=== PATIENT | male | born 1950 | race Caucasian/White ===

== ENCOUNTER 2016-12-20 14:15 | Inpatient (IN) | payer OTHER ==
[~2016-12-20] VITALS: Ht 182.9 cm; Wt 93.0 kg
[2016-12-20 15:03] LABS: BASOPHIL % 0.4 % (0-2); PLATELET COUNT 271 x10^3mcL (130-400); RED CELL DISTRIBUTION WIDTH 13.6 % (11.5-14.5)
[2016-12-20 15:41] LABS: CALCIUM 9.1 mg/dL (8.5-10.1); CARBON DIOXIDE 26.9 mmol/L (21-32); CHLORIDE SERUM 106 mmol/L (98-107); CREATININE SERUM 0.9 mg/dL (0.7-1.3); GFR1 > 60 mL/min; GLUCOSE SERUM 87 mg/dL (74-106); POTASSIUM SERUM 4.1 mmol/L (3.5-5.1); SODIUM SERUM 141 mmol/L (136-145)
[2016-12-20 15:46] LABS: ALBUMIN 3.6 g/dL (3.4-5.0); ALKALINE PHOSPHATASE 85 U/L (46-116); ALT/SGPT 22 U/L (16-63); AST/SGOT 21 U/L (15-37); BILIRUBIN TOTAL 0.3 mg/dL (0.20-1.00); TOTAL PROTEIN, SERUM 6.8 g/dL (6.4-8.2)
[2016-12-20] MEDS ORDERED: GOOD NEIGHBOR P20 M1 PO (16:01)
[2016-12-20] MEDS ORDERED: ASPIR 8181 MG PO (16:02)
[2016-12-20] MEDS ORDERED: ATENOLOL50 MG PO (16:02)
[2016-12-20] MEDS ORDERED: VITAMIN D2400 UNIT PO (16:03)
[2016-12-20] MEDS ORDERED: SIMVASTATIN20 M1 PO (16:04)
[2016-12-20 16:42] LABS: PHOSPHOROUS 3.6 mg/dL (2.5-4.9)
[2016-12-20 16:44] LABS: CHOLESTEROL/HDL RATIO 3.3; MAGNESIUM 1.9 mg/dL (1.8-2.4)
[2016-12-20 16:49] LABS: T3 TOTAL 1.32 ng/mL
[2016-12-20 16:52] LABS: FREE T4 1.04 ng/dL (0.76-1.46); FREE THYROXINE INDEX 2.4 ug/dL (1.4-4.5); T4(THYROXINE) 7.5 ug/dL (4.7-13.3)
[2016-12-20 17:05] VITALS: BP 105/64
[2016-12-20 17:12] VITALS: Ht 182.9 cm; Wt 93.0 kg
[2016-12-20 21:16] VITALS: BP 106/63
[2016-12-20 22:09] LABS: microscopic required? NO
[2016-12-20 22:16] LABS: UA SPECIFIC GRAVITY >=1.030 (1.005-1.035); urine erythrocyte NEGATIVE (NEGATIVE)
[2016-12-20 22:25] LABS: AMPHETAMINE QUAL UR NONE DETECTED (NEG <=1000)
[2016-12-21 04:57] VITALS: BP 108/66
[2016-12-21 07:23] LABS: BASOPHIL % 0.3 % (0-2); PLATELET COUNT 236 x10^3mcL (130-400); RED CELL DISTRIBUTION WIDTH 13.3 % (11.5-14.5)
[2016-12-21 07:30] LABS: CALCIUM 8.3 mg/dL (8.5-10.1); CHLORIDE SERUM 107 mmol/L (98-107); CREATININE SERUM 0.9 mg/dL (0.7-1.3); GFR1 > 60 mL/min; GLUCOSE SERUM 122 mg/dL (74-106); POTASSIUM SERUM 3.9 mmol/L (3.5-5.1); SODIUM SERUM 141 mmol/L (136-145)
[2016-12-21 08:47] VITALS: BP 126/61
[2016-12-21 14:40] VITALS: BP 109/64
[2016-12-21 14:41] VITALS: BP 108/66
[2016-12-21 17:33] VITALS: BP 102/65
[2016-12-21 22:06] VITALS: BP 108/58
[2016-12-22 06:16] VITALS: BP 107/60
[2016-12-22 06:43] LABS: BASOPHIL % 0.5 % (0-2); PLATELET COUNT 244 x10^3mcL (130-400); RED CELL DISTRIBUTION WIDTH 13.4 % (11.5-14.5)
[2016-12-22 07:34] LABS: CALCIUM 8.8 mg/dL (8.5-10.1); CARBON DIOXIDE 26.2 mmol/L (21-32); CHLORIDE SERUM 107 mmol/L (98-107); CREATININE SERUM 0.9 mg/dL (0.7-1.3); GFR1 > 60 mL/min; GLUCOSE SERUM 89 mg/dL (74-106); MAGNESIUM 1.9 mg/dL (1.8-2.4); PHOSPHOROUS 3.1 mg/dL (2.5-4.9); POTASSIUM SERUM 3.9 mmol/L (3.5-5.1); SODIUM SERUM 141 mmol/L (136-145)
[2016-12-22 09:00] VITALS: BP 107/59
[2016-12-22] MEDS ORDERED: MOT400 PO (09:49)
[2016-12-22] MEDS ORDERED: CYCLOBENZAPRINE5 MG PO (09:49)
[2016-12-22] MEDS ORDERED: ATENOLOL25 MG PO (09:49)
[2016-12-22] MEDS ORDERED: TENORMIN50 MG PO (09:53)
[2016-12-22 10:20] VITALS: BP 104/66
[2016-12-22 10:25] VITALS: BP 104/66
== END 2016-12-22 10:55 | disposition home or self-care (01) | DRG 206 ==
LOC: ED 14:15 → DU 15:56
PROVIDERS: Emergency Medicine; ADMIT Family Medicine
DX: M94.0 Chondrocostal junction syndrome [Tietze] (principal); E78.5 Hyperlipidemia, unspecified; E03.9 Hypothyroidism, unspecified; I10 Essential (primary) hypertension; F17.210 Nicotine dependence, cigarettes, uncomplicated; M50.30 Other cervical disc degeneration, unspecified cervical region; M48.54XD Collapsed vertebra, not elsewhere classified, thoracic region, subsequent encounter for fracture with routine healing; Z79.82 Long term (current) use of aspirin; Z68.27 Body mass index [BMI] 27.0-27.9, adult
CPT/HCPCS: 72072; 83880; 84439; J7030

== ENCOUNTER 2018-10-30 15:15 | Emergency (ER) | payer OTHER, MEDICAID ==
[~2018-10-30] VITALS: Ht 182.9 cm; Wt 92.1 kg
[~2018-10-30 15:15] MED LIST: ASPIR 8181 MG PO; ATENOLOL25 MG PO; ATENOLOL50 MG PO; CYCLOBENZAPRINE5 MG PO; GOOD NEIGHBOR P20 M1 PO; MOT400 PO; SIMVASTATIN20 M1 PO; TENORMIN50 MG PO; VITAMIN D2400 UNIT PO
[2018-10-30 15:25] VITALS: Ht 182.9 cm; Wt 92.1 kg
[2018-10-30 17:08] LABS: BASOPHIL % 0.2 % (0-2); PLATELET COUNT 287 x10^3mcL (130-400); RED CELL DISTRIBUTION WIDTH 14.1 % (11.5-14.5)
[2018-10-30 17:18] LABS: CARBON DIOXIDE 32.1 mmol/L (21-32); CHLORIDE SERUM 103 mmol/L (98-107); GFR1 > 60 mL/min; GLUCOSE SERUM 86 mg/dL (74-106); POTASSIUM SERUM 4.2 mmol/L (3.5-5.1); SODIUM SERUM 140 mmol/L (136-145)
[2018-10-30 17:28] LABS: ALBUMIN 3.6 g/dL (3.4-5.0); ALKALINE PHOSPHATASE 68 U/L (46-116); ALT/SGPT 25 U/L (16-63); AST/SGOT 13 U/L (15-37); BILIRUBIN TOTAL 0.35 mg/dL (0.20-1.00); CHOLESTEROL 179 mg/dL (<200); HDL CHOLESTEROL 49 mg/dL (40-60); LIPASE 222 IU/L (73-393); T4(THYROXINE) 8.2 ug/dL (4.7-13.3); TOTAL PROTEIN, SERUM 6.7 g/dL (6.4-8.2)
[2018-10-30 17:34] LABS: microscopic required? NO
[2018-10-30 17:41] LABS: UA SPECIFIC GRAVITY 1.015 (1.005-1.035); urine erythrocyte NEGATIVE (NEGATIVE)
[2018-10-30 17:49] LABS: AMPHETAMINE QUAL UR NONE DETECTED (See below)
[2018-10-30 19:00] VITALS: BP 115/84
== END 2018-10-30 19:00 | disposition home or self-care (01) ==
LOC: ED 15:15
PROVIDERS: Emergency Medicine
DX: R51 Headache (principal); M54.12 Radiculopathy, cervical region; M50.30 Other cervical disc degeneration, unspecified cervical region; I10 Essential (primary) hypertension; J44.9 Chronic obstructive pulmonary disease, unspecified; E78.00 Pure hypercholesterolemia, unspecified
CPT/HCPCS: J1100; J1885